=== PATIENT | female | born 1930 | race Caucasian/White ===

== ENCOUNTER 2016-10-10 07:35 | Outpatient (CLI) | payer MEDICARE, OTHER ==
[2016-10-10 12:58] LABS: BASOPHILS # (AUTO) 0.1 10^3/uL (0.0-0.1); BASOPHILS % (AUTO) 0.7 %; EOSINOPHILS # (AUTO) 0.2 10^3/uL (0.0-0.7); EOSINOPHILS % (AUTO) 2.3 %; HCT - HEMATOCRIT 37.6 % (37.0-47.0); HGB - HEMOGLOBIN 12.5 g/dL (12.0-16.0); LYMPHOCYTES # (AUTO) 2.4 10^3/uL (1.5-3.5); LYMPHOCYTES % (AUTO) 31.1 %; MEAN CORPUSCULAR HEMOGLOBIN 29.5 pg (27.0-31.0); MEAN CORPUSCULAR HGB CONC 33.2 g/dL (32.0-36.0); MEAN CORPUSCULAR VOLUME 88.8 fL (81.0-99.0); MEAN PLATELET VOLUME 9.9 fL (7.9-10.8); MONOCYTES # (AUTO) 0.6 10^3/uL (0.0-1.0); NEUTROPHILS # (AUTO) 4.5 10^3/uL (1.5-6.6); NEUTROPHILS % (AUTO) 57.9 %; RED BLOOD COUNT 4.24 10^6/uL (4.20-5.40); RED CELL DISTRIBUTION WIDTH 12.9 % (12.0-15.0); UNCORRECTED WHITE BLOOD COUNT 7.7 x10^3/uL; WHITE BLOOD COUNT 7.7 x10^3/uL (4.8-10.8)
[2016-10-10 13:34] LABS: ALBUMIN/GLOBULIN RATIO 1.3 (1.0-2.2); BILIRUBIN,TOTAL 0.4 mg/dL (0.2-1.0); BUN - BLOOD UREA NITROGEN 19 mg/dL (6-20); CALCIUM 9.5 mg/dL (8.5-10.3); CARBON DIOXIDE - CO2 26 mmol/L (21-32); CHLORIDE 107 mmol/L (101-111); CHOL/HDL RATIO 5.2 (<4.4); CHOLESTEROL 220 mg/dL; GFR - MDRD 53 (>89); GLUCOSE 104 mg/dL (70-100); HDL CHOLESTEROL 42 mg/dL; POTASSIUM 4.5 mmol/L (3.5-5.0); SODIUM 141 mmol/L (135-145); TOTAL PROTEIN 7.7 g/dL (6.7-8.2); TRIGLYCERIDES 417 mg/dL
[2016-10-10 14:02] LABS: LDL CHOLESTEROL,DIRECT 109 mg/dL
== END 2016-10-10 23:59 ==
LOC: LAB.WCP 07:35
PROVIDERS: ATTEND Physician Assistant Medical
DX: I10 Essential (primary) hypertension (principal)
CPT/HCPCS: 36415; 80053; 80061; 85025

== ENCOUNTER 2017-06-27 09:09 | Outpatient (CLI) | payer MEDICARE, OTHER ==
[2017-06-27 12:25] LABS: BASOPHILS % (AUTO) 0.5 %; EOSINOPHILS # (AUTO) 0.1 10^3/uL (0.0-0.7); EOSINOPHILS % (AUTO) 2.4 %; HGB - HEMOGLOBIN 11.9 g/dL (12.0-16.0); LYMPHOCYTES # (AUTO) 2.4 10^3/uL (1.5-3.5); LYMPHOCYTES % (AUTO) 38.7 %; MEAN CORPUSCULAR HEMOGLOBIN 29.5 pg (27.0-31.0); MEAN CORPUSCULAR HGB CONC 33.3 g/dL (32.0-36.0); MEAN CORPUSCULAR VOLUME 88.5 fL (81.0-99.0); MEAN PLATELET VOLUME 9.5 fL (7.9-10.8); MONOCYTES # (AUTO) 0.5 10^3/uL (0.0-1.0); MONOCYTES % (AUTO) 7.9 %; NEUTROPHILS # (AUTO) 3.1 10^3/uL (1.5-6.6); NEUTROPHILS % (AUTO) 50.5 %; PLT - PLATELET COUNT 212 10^3/uL (130-450); RED BLOOD COUNT 4.04 10^6/uL (4.20-5.40); RED CELL DISTRIBUTION WIDTH 13.8 % (12.0-15.0); WHITE BLOOD COUNT 6.1 x10^3/uL (4.8-10.8)
[2017-06-27 12:59] LABS: ALBUMIN 4.2 g/dL (3.2-5.5); ALBUMIN/GLOBULIN RATIO 1.4 (1.0-2.2); ALKALINE PHOSPHATASE 71 IU/L (42-121); ALT ALANINE AMINOTRANSFERASE 17 IU/L (10-60); AST ASPARTATE AMINOTRANSFERASE 20 IU/L (10-42); BILIRUBIN,TOTAL 0.5 mg/dL (0.2-1.0); BUN - BLOOD UREA NITROGEN 17 mg/dL (6-20); CALCIUM 8.6 mg/dL (8.5-10.3); CARBON DIOXIDE - CO2 25 mmol/L (21-32); CHLORIDE 105 mmol/L (101-111); CHOLESTEROL 183 mg/dL; CREATININE 0.9 mg/dL (0.4-1.0); GFR - MDRD 59 (>89); GLUCOSE 100 mg/dL (70-100); HDL CHOLESTEROL 46 mg/dL; LDL CHOLESTEROL,CALCULATED 80 mg/dL; LDL/HDL RATIO 1.7 (<4.4); SODIUM 138 mmol/L (135-145); TOTAL PROTEIN 7.3 g/dL (6.7-8.2); VLDL CHOLESTEROL 57 mg/dL
== END 2017-06-27 23:59 | disposition home or self-care (01) ==
LOC: LAB.WCP 09:09
PROVIDERS: ATTEND Family Medicine
DX: K76.0 Fatty (change of) liver, not elsewhere classified (principal); E78.5 Hyperlipidemia, unspecified; R00.2 Palpitations
CPT/HCPCS: 36415; 80053; 80061; 83721; 84443; 85025

== ENCOUNTER 2018-05-21 11:49 | Outpatient (CLI) | payer MEDICARE, OTHER ==
--- NOTE | 2018-05-21 12:59 | CT Report ---
Reason: PLEURAL EFFUSION Procedure Date: 05/21/2018 Accession Number: [id number] / [id number] Procedure: CT - Chest W/O CPT Code: FULL RESULT: EXAM: CT CHEST EXAM DATE: 05/21/2018 12:24 PM. CLINICAL HISTORY: Pleural effusion. COMPARISONS: None. TECHNIQUE: Routine helical CT imaging was performed through the chest. IV contrast: None. Reconstructions: Coronal and sagittal. In accordance with CT protocol optimization, one or more of the following dose reduction techniques were utilized for this exam: automated exposure control, adjustment of mA and/or KV based on patient size, or use of iterative reconstructive technique. FINDINGS: Lungs/Pleura: There is patchy consolidation bilaterally as well as a moderate left and small right pleural effusion. No pneumothorax is seen. While possibly part of the consolidative pattern, lung nodules of various size are also noted, for example a 6 mm nodule on image 33 series 3 in the right middle lobe, or a 4 mm nodule on image 36 series 3 in the left lower lobe. Mediastinum: Marked three-vessel coronary calcifications. There is a small pericardial effusion in the setting of cardiac enlargement. There is no mediastinal lymphadenopathy. Bones: Unremarkable. Visualized Abdomen: Unremarkable. Other: None. IMPRESSION: Bilateral pleural effusions left greater than right as well as a small pericardial effusion in the setting of severe coronary calcifications and cardiomegaly. Pulmonary nodules and patchy consolidation. Underlying malignancy is difficult to exclude on the current exam and repeat CT 3 months following resolution of the acute episode is recommended for that purpose. RADIA
== END 2018-05-21 11:50 | disposition home or self-care (01) ==
LOC: DI 11:49
PROVIDERS: ATTEND Family Medicine
DX: J18.1 Lobar pneumonia, unspecified organism (principal); J90 Pleural effusion, not elsewhere classified; I31.3 Pericardial effusion (noninflammatory); I25.10 Atherosclerotic heart disease of native coronary artery without angina pectoris; I51.7 Cardiomegaly
CPT/HCPCS: 71250

== ENCOUNTER 2018-06-05 09:04 | Outpatient (CLI) | payer MEDICARE, OTHER ==
[2018-06-05 13:17] LABS: BASOPHILS % (AUTO) 0.7 %; EOSINOPHILS # (AUTO) 0.1 10^3/uL (0.0-0.7); EOSINOPHILS % (AUTO) 1.5 %; HGB - HEMOGLOBIN 12.9 g/dL (12.0-16.0); LYMPHOCYTES # (AUTO) 2.6 10^3/uL (1.5-3.5); LYMPHOCYTES % (AUTO) 35.8 %; MEAN CORPUSCULAR HEMOGLOBIN 30.7 pg (27.0-31.0); MEAN CORPUSCULAR VOLUME 90.3 fL (81.0-99.0); MEAN PLATELET VOLUME 8.6 fL (7.9-10.8); MONOCYTES # (AUTO) 0.4 10^3/uL (0.0-1.0); MONOCYTES % (AUTO) 6.3 %; NEUTROPHILS % (AUTO) 55.7 %; PLT - PLATELET COUNT 274 10^3/uL (130-450); RED BLOOD COUNT 4.19 10^6/uL (4.20-5.40); RED CELL DISTRIBUTION WIDTH 13.9 % (12.0-15.0); WHITE BLOOD COUNT 7.1 x10^3/uL (4.8-10.8)
[2018-06-05 13:59] LABS: ALBUMIN 4.7 g/dL (3.2-5.5); ALBUMIN/GLOBULIN RATIO 1.5 (1.0-2.2); BILIRUBIN,TOTAL 0.7 mg/dL (0.2-1.0); CALCIUM 9.4 mg/dL (8.5-10.3); TOTAL PROTEIN 7.8 g/dL (6.7-8.2)
== END 2018-06-05 23:59 | disposition home or self-care (01) ==
LOC: LAB.WCP 09:04
PROVIDERS: ATTEND Family Medicine
DX: M70.60 Trochanteric bursitis, unspecified hip (principal); E78.5 Hyperlipidemia, unspecified; I10 Essential (primary) hypertension
CPT/HCPCS: 36415; 80053; 85025

== ENCOUNTER 2018-06-06 08:46 | Outpatient (CLI) | payer MEDICARE, OTHER | END 2018-06-06 08:47 | disposition home or self-care (01) | LOC: LAB.WCP 08:46 | PROVIDERS: ATTEND Family Medicine | DX: R06.01 Orthopnea (principal); R06.00 Dyspnea, unspecified | CPT/HCPCS: 36415; 83880 ==

== ENCOUNTER 2018-06-09 08:31 | Outpatient (CLI) | payer MEDICARE, OTHER | END 2018-06-09 08:32 | disposition home or self-care (01) | LOC: DI 08:31 | PROVIDERS: ATTEND Family Medicine | DX: R06.01 Orthopnea (principal); R06.00 Dyspnea, unspecified; I07.1 Rheumatic tricuspid insufficiency | CPT/HCPCS: 93306 ==

== ENCOUNTER 2018-06-11 21:05 | Emergency (ER) | payer MEDICARE, OTHER ==
[2018-06-11] MEDS ORDERED: IOVERSOL 320 100 ML VIAL IVP ONE ×3 (21:06→23:26)
--- NOTE | 2018-06-11 21:55 | ED Physician Documentation ---
PD HPI BACK PAIN - Stated complaint Stated Complaint: BACK PX - Chief complaint Chief Complaint: Back Pain - History obtained from History obtained from: Patient, Family - History of Present Illness Timing - onset: How many hours ago (1) Timing - details: Abrupt onset Pain level now: 2 Location: Upper, Left Quality: Pain Associated symptoms: No: Fever, Weakness, Numbness Improves with: Nothing Worsened by: Other (no exacerbating factors) Similar symptoms before: Has not had sx before - Additional information Additional information: c/o left upper back pain, parathoracic (adjacent to medial aspect of left scapula), onset approximately 1 hour [employer] while at home at rest. No exacerbating factors, denies similar symptoms in the past Review of Systems Constitutional: denies: Fever, Chills, Sweats Cardiac: reports: Reviewed and negative Respiratory: reports: Reviewed and negative GI: reports: Reviewed and negative : denies: Dysuria, Frequency Skin: denies: Rash Musculoskeletal: reports: Back pain PD PAST MEDICAL HISTORY - Past Medical History Past Medical History: Yes Cardiovascular: Hypertension : Other - Past Surgical History Past Surgical History: Yes General: Cholecystectomy HEENT: Tonsil/Adenoidectomy - Present Medications Home Medications: Ambulatory Orders Medication Instructions Recorded Confirmed Blood Pressure Meds X 4 08/10/15 hydrOXYzine PAMOATE [Vistaril] 25 mg PO HS PRN #10 capsule 06/12/18 - Allergies Allergies/Adverse Reactions: Allergies Allergy/AdvReac Type Severity Reaction Status Date / Time No Known Drug Allergies Allergy Verified 06/11/18 21:14 - Social History Does the pt smoke?: No Smoking Status: Never smoker Does the pt drink ETOH?: No Does the pt have substance abuse?: No - Immunizations Immunizations are current?: Yes PD ED PE NORMAL - Vitals Vital signs reviewed: Yes - General General: Alert and oriented X 3, No acute distress, Well developed/nourished - HEENT HEENT: Moist mucous membranes - Neck Neck: Supple, no meningeal sign - Cardiac Cardiac: RRR, No murmur, No gallop, No rub - Respiratory Respiratory: No respiratory distress, Clear bilaterally - Abdomen Abdomen: Soft, Non tender - Back Back: No spinal TTP - Derm Derm: Normal color, Warm and dry, No rash Results - Vitals Vitals: Oxygen O2 Source Room air - Labs Labs: Laboratory Tests 06/11/18 06/11/18 22:22 22:22 WBC 10.7 RBC 4.42 Hgb 13.5 Hct 41.3 MCV 93.4 MCH 30.5 MCHC 32.7 RDW 13.3 Plt Count 285 MPV 7.9 Neut # (Auto) 6.3 Lymph # (Auto) 3.2 [place] # (Auto) 0.9 Eos # (Auto) 0.2 Baso # (Auto) 0.0 Absolute Nucleated RBC 0.00 Nucleated RBC % 0.0 Sodium 136 Potassium 4.3 Chloride 99 L Carbon Dioxide 26 Anion Gap 11.0 BUN 35 H Creatinine 1.1 H Estimated GFR (MDRD) 47 L Glucose 116 H Calcium 9.6 - Rads (name of study) CT chest angio Radiology: Prelim report reviewed, See rad report PD MEDICAL DECISION MAKING - ED course Complexity details: reviewed old records, reviewed results, re-evaluated patient, considered differential, d/w patient, d/w family Departure - Departure Disposition: 01 Home, Self Care Clinical Impression: Back pain Qualifiers: Back pain location: thoracic back pain Chronicity: acute Back pain laterality: midline Qualified Code(s): M54.6 - Pain in thoracic spine Condition: Good Instructions: ED Neck Back Pain General, ED Acute Pain [facility] Follow-Up: Rah Gonzalez MD [Primary Care Provider] - Prescriptions: hydrOXYzine PAMOATE [Vistaril] 25 mg PO HS PRN #10 capsule PRN Reason: Insomnia Discharge Date/Time: 06/12/18 00:34
[2018-06-11] MEDS ORDERED: KETOROLAC 15 MG/ML VIAL IVP STA (22:08)
[2018-06-11 22:29] LABS: BASOPHILS % (AUTO) 0.4 %; EOSINOPHILS # (AUTO) 0.2 10^3/uL (0.0-0.7); EOSINOPHILS % (AUTO) 1.9 %; HGB - HEMOGLOBIN 13.5 g/dL (12.0-16.0); LYMPHOCYTES # (AUTO) 3.2 10^3/uL (1.5-3.5); LYMPHOCYTES % (AUTO) 30.3 %; MEAN CORPUSCULAR HEMOGLOBIN 30.5 pg (27.0-31.0); MEAN CORPUSCULAR HGB CONC 32.7 g/dL (32.0-36.0); MEAN CORPUSCULAR VOLUME 93.4 fL (81.0-99.0); MEAN PLATELET VOLUME 7.9 fL (7.9-10.8); MONOCYTES # (AUTO) 0.9 10^3/uL (0.0-1.0); NEUTROPHILS # (AUTO) 6.3 10^3/uL (1.5-6.6); NEUTROPHILS % (AUTO) 59.4 %; PLT - PLATELET COUNT 285 10^3/uL (130-450); RED BLOOD COUNT 4.42 10^6/uL (4.20-5.40); RED CELL DISTRIBUTION WIDTH 13.3 % (12.0-15.0); WHITE BLOOD COUNT 10.7 x10^3/uL (4.8-10.8)
[2018-06-11 22:38] LABS: CALCIUM 9.6 mg/dL (8.5-10.3); CREATININE 1.1 mg/dL (0.4-1.0)
--- NOTE | 2018-06-12 00:01 | CT Report ---
Reason: left thoracic back pain Procedure Date: 06/11/2018 Accession Number: [id number] / [id number] Procedure: CT - ANGIO CHEST W/WO CPT Code: FULL RESULT: EXAM: CT ANGIOGRAM CHEST EXAM DATE: 06/11/2018 11:27 PM. CLINICAL HISTORY: Left thoracic back pain. COMPARISON: CHEST W/O 05/21/2018 12:16 PM. TECHNIQUE: Routine helical imaging was performed through the chest in the pulmonary arterial phase. IV Contrast: 80ML OPTIRAY 320. Reconstructions: Coronal 3-D MIP reconstructions.Sagittal and coronal. In accordance with CT protocol optimization, one or more of the following dose reduction techniques were utilized for this exam: automated exposure control, adjustment of mA and/or KV based on patient size, or use of iterative reconstructive technique. FINDINGS: Pulmonary Arteries: Diagnostic quality: Adequate through the segmental arteries. No evidence for acute or chronic pulmonary emboli. RV/LV is within normal limits. There is no interventricular septal bowing. There is no reflux of contrast material in the IVC. Lungs/Pleura: Compared to the prior study the nodular infiltrate in the right upper lobe has largely cleared. There is a residual nodule in the right middle lobe noted on series 8 image 82. This is unchanged measuring 6 mm x 4 mm. There is minimal residual scarring in the peripheral aspect of the right lung and in the lingula. There is also a small calcified nodule in the region of the lingula. There are several peripheral nodules contiguous with the pleura in the left lower lobe and there is a zone of contiguous atelectasis. Previously these were not visualized because of the pleural effusion. There is a small residual left pleural effusion. Mediastinum: The heart is borderline enlarged and there are extensive atherosclerotic vascular calcifications of the coronary arteries. Thoracic Aorta: There are atherosclerotic vascular calcifications of the nondilated aorta. No evidence for dissection. Upper Abdomen: Unremarkable. Other: None. IMPRESSION: 1. No evidence for pulmonary emboli. 2. Several small peripheral nodules in the left lower lobe which are likely inflammatory or postinflammatory. Small left pleural effusion. 3. Small nodule in the lingula is stable compared to the prior study. 4. The previously noted infiltrate in the right upper lobe has cleared. RADIA
[2018-06-12] MEDS ORDERED: hydrOXYzine PAMOATE 25 MG CAPSULE PO STA (00:24)
[2018-06-12 00:33] VITALS: BP 126/59
== END 2018-06-12 00:34 | disposition home or self-care (01) ==
LOC: ED 21:05
DX: M54.6 Pain in thoracic spine (principal); I10 Essential (primary) hypertension
CPT/HCPCS: 36415; 71275; 80048; 85025; 96374; 99283

== ENCOUNTER 2018-07-14 20:30 | Emergency (ER) | payer MEDICARE, OTHER ==
[2018-07-14] MEDS ORDERED: ASPIRIN CHEW 81 MG TABLET PO STA (21:58)
[2018-07-14 22:19] LABS: BASOPHILS % (AUTO) 0.4 %; EOSINOPHILS # (AUTO) 0.1 10^3/uL (0.0-0.7); EOSINOPHILS % (AUTO) 0.8 %; HGB - HEMOGLOBIN 11.8 g/dL (12.0-16.0); LYMPHOCYTES # (AUTO) 2.7 10^3/uL (1.5-3.5); LYMPHOCYTES % (AUTO) 27.8 %; MEAN CORPUSCULAR HEMOGLOBIN 29.9 pg (27.0-31.0); MEAN CORPUSCULAR HGB CONC 33.3 g/dL (32.0-36.0); MEAN CORPUSCULAR VOLUME 89.7 fL (81.0-99.0); MEAN PLATELET VOLUME 7.6 fL (7.9-10.8); MONOCYTES # (AUTO) 0.6 10^3/uL (0.0-1.0); MONOCYTES % (AUTO) 6.4 %; NEUTROPHILS # (AUTO) 6.3 10^3/uL (1.5-6.6); NEUTROPHILS % (AUTO) 64.6 %; PLT - PLATELET COUNT 262 10^3/uL (130-450); RED BLOOD COUNT 3.93 10^6/uL (4.20-5.40); WHITE BLOOD COUNT 9.8 x10^3/uL (4.8-10.8)
[2018-07-14 22:36] LABS: ALBUMIN 4.5 g/dL (3.2-5.5); ALBUMIN/GLOBULIN RATIO 1.4 (1.0-2.2); BILIRUBIN,TOTAL 0.8 mg/dL (0.2-1.0); CALCIUM 9.5 mg/dL (8.5-10.3); CREATININE 0.9 mg/dL (0.4-1.0); TOTAL PROTEIN 7.8 g/dL (6.7-8.2)
--- NOTE | 2018-07-14 22:52 | XRAY Report ---
Reason: chest pain Procedure Date: 07/14/2018 Accession Number: [id number] / [id number] Procedure: XR - Chest 1 View X-Ray CPT Code: 77704 FULL RESULT: EXAM: CHEST RADIOGRAPHY EXAM DATE: 07/14/2018 10:10 PM. CLINICAL HISTORY: Chest pain. COMPARISON: CHEST 2 VIEW PA/LAT 05/21/2018 9:53 AM. TECHNIQUE: 1 view. FINDINGS: Lungs/Pleura: Small left pleural effusion, decreased since previous study. No definite right effusion at this time. Underlying atelectasis versus infiltrate in left base. CT described nodules not well seen. No pneumothorax. Mediastinum: Mild cardiomegaly. Upper lobe vessels not distended. Other: Osteopenia, degenerative changes. IMPRESSION: Decreased left pleural effusion. RADIA
--- NOTE | 2018-07-14 23:21 | ED Physician Documentation ---
PD HPI CHEST PAIN - Stated complaint Stated Complaint: SOA - Chief complaint Chief Complaint: General - History obtained from History obtained from: Patient - History of Present Illness Timing - onset: How many weeks ago (1) Timing - onset during: Rest Timing - duration: Days (3) Timing - details: Gradual onset Pain level max: 2 Pain level now: 2 Severity Comments: mild Quality: Aching Location: Left neck, Right neck Radiation: No: Jaw, Back, Left upper extremity, Right upper extremity Improved by: Rest Worsened by: Movement, Palpation Associated symptoms: No: Shortness of air, Diaphoresis, Nausea, Vomiting (88-year-old female with recent pleural effusion which was drained presents with chest and neck pain when she moves or pushes on her chest.Not worsened with exertion or relieved by rest. No shortness of breath.) Review of Systems Ten Systems: 10 systems reviewed and negative Constitutional: reports: Reviewed and negative Eyes: reports: Reviewed and negative Ears: reports: Reviewed and negative Nose: reports: Reviewed and negative Throat: reports: Reviewed and negative Cardiac: reports: Reviewed and negative Respiratory: reports: Reviewed and negative GI: reports: Reviewed and negative : reports: Reviewed and negative Skin: reports: Reviewed and negative Musculoskeletal: reports: Reviewed and negative Neurologic: reports: Reviewed and negative Psychiatric: reports: Reviewed and negative Endocrine: reports: Reviewed and negative Immunocompromised: reports: Reviewed and negative PD PAST MEDICAL HISTORY - Past Medical History Cardiovascular: Hypertension : Other - Past Surgical History Past Surgical History: Yes General: Cholecystectomy HEENT: Tonsil/Adenoidectomy - Present Medications Home Medications: Ambulatory Orders Medication Instructions Recorded Confirmed Blood Pressure Meds X 4 08/10/15 hydrOXYzine PAMOATE [Vistaril] 25 mg PO HS PRN #10 capsule 06/12/18 - Allergies Allergies/Adverse Reactions: Allergies Allergy/AdvReac Type Severity Reaction Status Date / Time No Known Drug Allergies Allergy Verified 07/14/18 20:41 - Living Situation Living Situation: reports: With family Living Arrangement: reports: At home - Social History Does the pt smoke?: No Smoking Status: Never smoker Does the pt drink ETOH?: No Does the pt have substance abuse?: No - Family History Family history: reports: Other (Reviewed and not pertinent) - Immunizations Immunizations are current?: Yes PD ED PE NORMAL - Vitals Vital signs reviewed: Yes - General General: Alert and oriented X 3, No acute distress - HEENT HEENT: PERRL - Neck Neck: Supple, no meningeal sign - Cardiac Cardiac: RRR, No murmur, Other (Reproducible chest wall tenderness over the anterior superior portion of the chest and neck.) - Respiratory Respiratory: Clear bilaterally - Abdomen Abdomen: Normal bowel sounds, Soft, Non tender, Non distended - Derm Derm: Warm and dry - Extremities Extremities: No deformity - Neuro Neuro: Alert and oriented X 3 - Psych Psych: Normal mood, Normal affect Results - Vitals Vitals: Vital Signs - 24 hr 07/14/18 20:32 Temperature 36.8 C Heart Rate 102 H Respiratory 18 Rate Blood Pressure 132/70 H O2 Saturation 99 Oxygen O2 Source Room air - Labs Labs: Laboratory Tests 07/14/18 07/14/18 07/14/18 22:10 22:10 22:10 WBC 9.8 RBC 3.93 L Hgb 11.8 L Hct 35.3 L MCV 89.7 MCH 29.9 MCHC 33.3 RDW 14.0 Plt Count 262 MPV 7.6 L Neut # (Auto) 6.3 Lymph # (Auto) 2.7 [place] # (Auto) 0.6 Eos # (Auto) 0.1 Baso # (Auto) 0.0 Absolute Nucleated RBC 0.01 Nucleated RBC % 0.1 Sodium 138 Potassium 4.8 Chloride 107 Carbon Dioxide 23 Anion Gap 8.0 BUN 24 H Creatinine 0.9 Estimated GFR (MDRD) 59 L Glucose 122 H Calcium 9.5 Total Bilirubin 0.8 AST 20 ALT 18 Alkaline Phosphatase 81 Troponin I 0.08 Total Protein 7.8 Albumin 4.5 Globulin 3.3 Albumin/Globulin Ratio 1.4 Lipase 37 TSH Free T4 07/14/18 07/14/18 22:10 22:10 WBC RBC Hgb Hct MCV MCH MCHC RDW Plt Count MPV Neut # (Auto) Lymph # (Auto) [place] # (Auto) Eos # (Auto) Baso # (Auto) Absolute Nucleated RBC Nucleated RBC % Sodium Potassium Chloride Carbon Dioxide Anion Gap BUN Creatinine Estimated GFR (MDRD) Glucose Calcium Total Bilirubin AST ALT Alkaline Phosphatase Troponin I Total Protein Albumin Globulin Albumin/Globulin Ratio Lipase TSH 0.91 Free T4 0.80 - Rads (name of study) Chest xray Radiology: Final report received, Other (Improved effusion, otherwise normal) PD MEDICAL DECISION MAKING - ED course Complexity details: reviewed results, re-evaluated patient, considered differential, d/w patient ED course: 80-year-old female with recent thoracentesis presents with chest wall pain for the last few days. Patient with reproducible anterior superior chest and neck tenderness to palpation with an otherwise unremarkable exam, labs, EKG, troponin and chest x-ray. Patient discharged with symptomatic treatment. No clinical indication of ACS, PE, dissection. Departure - Departure Disposition: 01 Home, Self Care Clinical Impression: Chest wall pain Condition: Stable Instructions: ED Strain Chest Wall Follow-Up: Rah Gonzalez MD [Primary Care Provider] - Comments: Follow-up with PCP within 24 hours. You may take Tylenol or ibuprofen as needed for chest and neck discomfort. Return with worsening symptoms.
[2018-07-14 23:32] VITALS: BP 147/74
== END 2018-07-14 23:32 | disposition home or self-care (01) ==
LOC: ED 20:30
DX: R07.89 Other chest pain (principal); M54.2 Cervicalgia; J90 Pleural effusion, not elsewhere classified; I45.10 Unspecified right bundle-branch block; I10 Essential (primary) hypertension
CPT/HCPCS: 36415; 71045; 80053; 83690; 84439; 84443; 84484; 85025; 93005; 99283

== ENCOUNTER 2018-08-08 08:00 | Outpatient (CLI) | payer MEDICARE, OTHER ==
[2018-08-08 14:50] LABS: CALCIUM 9.3 mg/dL (8.5-10.3); CREATININE 1.1 mg/dL (0.4-1.0)
== END 2018-08-08 23:59 | disposition home or self-care (01) ==
LOC: LAB.WCP 08:00
PROVIDERS: ATTEND Internal Medicine Cardiovascular Disease
DX: I42.9 Cardiomyopathy, unspecified (principal)
CPT/HCPCS: 36415; 80048

== ENCOUNTER 2019-05-15 08:15 | Outpatient (CLI) | payer MEDICARE, OTHER ==
--- NOTE | 2019-05-15 21:19 | XRAY Report ---
Reason: SYSTOLIC HEART FAILURE, PLEURAL EFFUSION Procedure Date: 05/15/2019 Accession Number: [id number] / [id number] Procedure: WCP - Chest 2 View X-Ray CPT Code: 16589 Final Report FULL RESULT: EXAM: CHEST RADIOGRAPHY EXAM DATE: 05/15/2019 09:12 AM. CLINICAL HISTORY: SYSTOLIC HEART FAILURE, PLEURAL EFFUSION. COMPARISON: CHEST 1 VIEW 07/14/2018 9:56 PM CHEST 2 VIEW PA/LAT 05/21/2018 9:53 AM. TECHNIQUE: 2 views. FINDINGS: Lungs/Pleura: Hyperexpanded. Tiny right and trace left pleural effusions. Patchy infiltration in left lung base. No consolidation or pneumothorax. Mediastinum: Mild cardiomegaly. Upper lobe vessels not distended. Other: Degenerative changes. IMPRESSION: 1. Small left basilar infiltrate. 2. Tiny right and trace left pleural effusions. RADIA
== END 2019-05-15 23:59 | disposition home or self-care (01) ==
LOC: DI.WCP 08:15
PROVIDERS: ATTEND Family Medicine
DX: J90 Pleural effusion, not elsewhere classified (principal); I50.20 Unspecified systolic (congestive) heart failure
CPT/HCPCS: 71046